=== PATIENT | female | born 1960 | race Caucasian/White ===

== ENCOUNTER 2016-11-28 22:53 | Emergency (ER) | payer OTHER ==
[2016-11-28 23:22] LABS: BASOPHILS 0.4 % (0-2); EOSINOPHILS 0.9 % (0-7); HEMATOCRIT 38.3 % (36.0-48.0); HEMOGLOBIN 12.9 g/dL (12-16); IMMATURE GRANULOCYTES 0.5 % (0-5); LYMPHOCYTES 23.8 % (15-50); MCH 30.5 pg (26.0-34.0); MCHC 33.7 g/dL (31.0-37.0); MCV 90.5 fL (80.0-100.0); MONOCYTES 10.8 % (2-11); NEUTROPHILS 63.6 % (40-80); RBC 4.23 10x6/uL (4.00-5.40); RDW 14.4 % (11.5-14.5); WBC 11.1 10x3/uL (4.8-10.8)
[2016-11-28 23:23] LABS: PLATELET COUNT 254 10x3/uL (130-400)
[2016-11-28 23:28] LABS: APPEARANCE CLEAR (CLEAR); BILIRUBIN NEGATIVE (NEGATIVE); COLOR YELLOW (YELLOW); GLUCOSE NEGATIVE (NEGATIVE); KETONE NEGATIVE (NEGATIVE); LEUKOCYTE ESTERASE TRACE (NEGATIVE); NITRITE NEGATIVE (NEGATIVE); PROTEIN NEGATIVE (NEGATIVE); SPECIFIC GRAVITY 1.005 (1.005-1.020); UROBILINOGEN NORMAL (NORMAL)
[2016-11-28 23:31] LABS: BACTERIA FEW /hpf (NONE SEEN); EPITHELIAL CELLS 0-5 /hpf (0-5); RED CELLS - URINE 0-5 /hpf (0-5); WHITE CELLS - URINE 0-5 /hpf (0-5)
[2016-11-28 23:37] LABS: BILIRUBIN - TOTAL 0.94 mg/dL (0.2-1.3); CALCIUM 8.5 mg/dL (8.5-10.1); CREATININE - SERUM 1.1 mg/dL (0.6-1.3); PROTEIN - SERUM 8.5 g/dL (6.4-8.2)
== END 2016-11-29 01:11 | disposition home or self-care (01) ==
LOC: D.ER 22:53
PROVIDERS: Emergency Medicine
DX: K57.92 Diverticulitis of intestine, part unspecified, without perforation or abscess without bleeding (principal); E03.9 Hypothyroidism, unspecified

== ENCOUNTER 2017-02-24 09:00 | Outpatient (CLI) | payer OTHER | END 2017-02-24 23:59 | disposition home or self-care (01) | LOC: D.MAMMO 09:00 | DX: N63.0 Unspecified lump in unspecified breast (principal) ==

== ENCOUNTER → 2017-08-04 09:43 | Outpatient (CLI) | payer OTHER ==
--- NOTE | ~2017-08-04 | EC ---
PATIENT:CARMELA ERWIN DATE OF SERVICE: 08/04/17 SEX: F MEDICAL RECORD: [id number] DATE OF : 56 LOCATION:D.FORMERLY [facility], LATER [facility] AGE OF PATIENT: 56 ADMISSION DATE: 08/04/17 REFERRING PHYSICIAN: INTERPRETING PHYSICIAN: FATMATA GRAHAM MD ECHOCARDIOGRAM REPORT ECHO CHARGES 4 ECHO COMPLETE Date: 08/04 CLINICAL DIAGNOSIS: EDEMA ECHOCARDIOGRAPHIC MEASUREMENTS (adult normal given) AC root (d.<3.7cm) 4.0 cm LV Septum d (<1.2 cm> 1.7 cm Valve Excursion 1.7 cm LV Septum (systole) 2.0 cm Left Atria (s.<4.0cm> 3.6 cm LVPW d(<1.2cm) 1.7 cm RV (d.<2.3cm) 2.9 cm LVPW (sytole) 2.0 cm LV diastole(<5.6CM) 4.0 cm MV E-F(>70mm/sec) cm LV systole 2.9 cm LVOT Diameter 2.0 cm MV exc.(>10mm) 1.2 cm Est.ejection fraction (50-75%) % DOPPLER: LVIT cm/sec A 87.0 cm/sec E 52.0 cm/sec LA cm/sec RVSP 28 mmHg LVOT 81 cm/sec AOP1/2T m/s Asc. Ao 113 cm/sec RVOT 75 cm/sec RA cm/sec PA 84 cm/sec AV Gradient Peak 5.09 mmHg AV Mean 2.78 mmHg AV Area 2.1 cm MV Gradient Peak 4.59 mmHg MV Mean 1.53 mmHg MV Area cm COMMENTS: Surgical Device Sales Representative: Adina ALVAREZ Safety Teacher: 2 Dr. Castrejon TAPE# PACS Pericardial Effusion N DATE OF SERVICE: 08/04/2017 ECHOCARDIOGRAM FINDINGS: 1. Left ventricular chamber size is within normal limits. Left ventricular systolic function is normal. Overall ejection fraction estimated at 60%. 2. Left atrium is within normal limits at 3.6 cm. Right atrium and right ventricle chamber sizes are mildly dilated. 3. Valvular structures have normal structure and motion. ECHOCARDIOGRAM REPORT [id number] CARMELA ERWIN 4. Doppler interrogation reveals trace to mild tricuspid regurgitation, no other valvular insufficiency or stenosis. 5. No evidence of pericardial effusion or left ventricular thrombus. TRANSINT:[id number] Voice Confirmation ID: [id number] DOCUMENT ID: [id number] FATMATA GRAHAM MD at 1849 CC: [id number] DICTATION DATE: 08/04/17 1307 MACHINE STEAK TENDERIZER: 08/04/17 1652 DEP CLI 08/04/17 [place] [id number] [place] [id number]
== END | disposition home or self-care (01) ==
LOC: D.ECHO 09:43
DX: R60.9 Edema, unspecified (principal)

== ENCOUNTER 2018-07-02 08:00 | Outpatient (CLI) | payer OTHER | END 2018-07-02 09:00 | disposition home or self-care (01) | LOC: D.MAMMO 08:00 | PROVIDERS: ATTEND Nurse Practitioner Family | DX: Z12.31 Encounter for screening mammogram for malignant neoplasm of breast (principal) ==

== ENCOUNTER 2019-10-17 19:00 | Outpatient (CLI) | payer OTHER | END 2019-10-17 23:59 | disposition home or self-care (01) | LOC: D.MAMMO 19:00 | PROVIDERS: ATTEND Nurse Practitioner Family | DX: Z12.31 Encounter for screening mammogram for malignant neoplasm of breast (principal) ==